=== PATIENT | female | born 1970 | race Caucasian/White ===

== ENCOUNTER → 2017-10-09 | Outpatient (CLI) | payer BC ==
[~2017-10-09] MED LIST: LEXAPRO20 MG PO; ZITHROMAX 250M250 MG PO
== END ==
LOC: COL.RAD 07:14
DX: N83.201 Unspecified ovarian cyst, right side (principal); K76.89 Other specified diseases of liver; R63.4 Abnormal weight loss
CPT/HCPCS: J7050; Q9967

== ENCOUNTER 2017-10-17 19:43 | Emergency (ER) | payer BC ==
[~2017-10-17] VITALS: Ht 167.6 cm; Wt 55.9 kg
[2017-10-17 19:46] VITALS: BP 126/86; TEMP 98.4
[2017-10-17] MEDS ORDERED: LEXAPRO20 MG PO (19:48)
[2017-10-17 20:36] LABS: INFLUENZA A NEGATIVE; INFLUENZA B NEGATIVE
[2017-10-17] MEDS ORDERED: ZITHROMAX 250M250 MG PO (20:53)
[2017-10-17 21:25] VITALS: PULSE 75
== END 2017-10-17 21:16 | disposition home or self-care (01) ==
LOC: COL.ER 19:43
PROVIDERS: Physician Assistant
DX: J20.9 Acute bronchitis, unspecified (principal)

== ENCOUNTER → 2018-09-10 | Outpatient (CLI) | payer BC | LOC: COL.RAD 08:51 | DX: N83.201 Unspecified ovarian cyst, right side (principal) ==

== ENCOUNTER → 2019-12-03 | Outpatient (CLI) | payer BC | LOC: MC.RAD 10:00 | DX: Z12.31 Encounter for screening mammogram for malignant neoplasm of breast (principal) ==

== ENCOUNTER → 2020-11-30 | Outpatient (CLI) | payer BC | LOC: COL.RAD 07:43 | DX: M25.532 Pain in left wrist (principal); Z87.81 Personal history of (healed) traumatic fracture | CPT/HCPCS: A9585; Q9967 ==